=== PATIENT | female | born 1995 ===

== ENCOUNTER 2017-05-15 10:41 | Emergency (ER) | payer BC ==
[2017-05-15 11:17] VITALS: O2SAT 100
[2017-05-15] MEDS ORDERED: APAP/HYDROCODONE 325/5 TAB PO ONE (11:34)
[2017-05-15] MEDS ORDERED: APAP/HYDROCODONE 325/5 TAB ONE (11:40)
[2017-05-15 11:49] LABS: BASOPHILS % (AUTO) 1 % (0-3); EOSINOPHILS % (AUTO) 2 % (0-9); HEMATOCRIT 37 % (35-47); MEAN CORPUSCULAR VOLUME 90 fL (81-99); MONOCYTES % (AUTO) 6.3 % (0-12); NEUTROPHILS % (AUTO) 53.1 % (37-80)
[2017-05-15 12:10] LABS: ALBUMIN 3.8 gm/dl (3.4-5.0); CALCIUM 8.8 mg/dl (8.5-10.1); POTASSIUM 3.9 mMol/L (3.5-5.1)
[2017-05-15 12:14] VITALS: BP 114/73; PULSE 79; RESP 16; TEMP 97.9
== END 2017-05-15 12:47 | disposition home or self-care (01) ==
LOC: ED 10:41
DX: S51.852A Open bite of left forearm, initial encounter (principal); S41.152A Open bite of left upper arm, initial encounter; W54.0XXA Bitten by dog, initial encounter
CPT/HCPCS: 36415; 73060; 73090; 80053; 85025; 99283